=== PATIENT | female | born 1985 | race Caucasian/White ===

== ENCOUNTER → 2023-11-09 19:54 | Outpatient (REF) | payer OTHER, SELFPAY | LOC: MRI 3T 19:54 | PROVIDERS: ATTENDING PHYSICIAN Psychiatry & Neurology Neurology; FAMILY PHYSICIAN Family Medicine | DX: R20.2 Paresthesia of skin (principal) | CPT/HCPCS: 70553; A9575 ==

== ENCOUNTER 2024-07-24 09:46 | Emergency (ER) | payer OTHER, SELFPAY ==
[2024-07-24 09:47] VITALS: BP 120/82
--- NOTE | 2024-07-24 10:49 | ED.GENMED ---
History of Present Illness
General
Chief Complaint: Skin Problem
Source: patient
Exam Limitations: none
Time Seen by Provider: 07/24/24 10:14
History of Present Illness
History of Present Illness:
38-year-old female presents with embedded earring in the left ear. She recently had this pierced. She has been on antibiotics because she thought it was infected. The front of the earring was overgrown by the earlobe. No fevers no other
complaints
Phy Exam
Physical Exam
Physical Exam:
General: Well-appearing female no distress skin: Left ear without significant erythema or fluctuance. The front of the left earring is embedded in the skin. It is palpable underneath the skin.
Course
Vital Signs
Initial and Last Documented VS:
Initial Vital Signs
Temp Pulse Resp BP Pulse Ox
98.7 F 85 16 120/82 99
07/24/24 09:47 07/24/24 09:47 07/24/24 09:47 07/24/24 09:47 07/24/24 09:47
Last Documented Vital Signs
Temp Pulse Resp BP Pulse Ox
98.7 F 85 16 120/82 99
07/24/24 09:47 07/24/24 09:47 07/24/24 09:47 07/24/24 09:47 07/24/24 09:47
MDM/Problems Addressed
Differential Diagnosis Includes:
Embedded earring left ear. This was easily removed after the earlobe was anesthetized with 1% lidocaine. This was easily removed from the posterior aspect of the ear in its entirety.
*Critical Care Note
Total Time (30-74mins, 75-104mins- exclusive of procedures): Not Applicable
ED Attending Note
-
Portions of this chart may have been created with voice recognition software.� Occasional wrong word or��sound alike� substitutions may have occurred due to the inherent limitations of voice recognition software.
Discharge Plan
Departure
Patient Disposition: Home (Routine Discharge)
Date of Disposition: 07/24/24
Time of Disposition: 10:50
Patient with high blood pressure during this ER visit?: No
Discharge Problem:
Embedded earring of left ear
Prescriptions:
No Action
prenat.vits,kota,vee-oovb-kpvdn [ Vitamin] 1 EACH tablet
1 tab PO DAILY
acetaminophen 325 MG tablet
650 mg PO Q4HPRN PRN (Reason: mild pain) 0RF
ibuprofen 600 MG tablet
600 mg PO Q4HPRN PRN (Reason: moderate pain/cramps) 0RF
Referrals:
Tammy Garces DO [Family Provider] -
Activity Restrictions/Additional Instructions:
Finish antibiotics. Return if needed
Interventions
Interventions:
*Risk Screen - Suicide Last Done: 07/24/24 09:47
*General Assessment Last Done: 07/24/24 09:47
*Neglect/Abuse Screening Last Done: 07/24/24 09:47
Discharge Date and Time
Print Language: AMHARIC
== END 2024-07-24 11:06 | disposition home or self-care (01) ==
LOC: EMR 09:46
PROVIDERS: EMERGENCY PHYSICIAN Emergency Medicine; FAMILY PHYSICIAN Family Medicine
DX: S00.452A Superficial foreign body of left ear, initial encounter (principal); W45.8XXA Other foreign body or object entering through skin, initial encounter
CPT/HCPCS: 99282